=== PATIENT | female | born 1955 | race Caucasian/White ===

== ENCOUNTER 2017-03-01 21:32 | Emergency (ER) | payer OTHER ==
[~2017-03-01 21:32] MED LIST: ACET500CAP PO; ACETSUP325 PR; ASAB PO; BEN25 PO; CLORAZ DIPOT OR; COZ50 PO; DIOVAN HCT160 MG/25 PO; LIDODERM TOP; MULTIVIT/MIN PO; NASACORTAQ NAS; P10; STERAPRED DS10 MG; TRIAMCINOLONE C80 GM TOP; VITAMIN B-12 PO; ZOL100 PO
[2017-03-01 22:34] LABS: BASOPHILS 0.5 %; BASOPHILS ABSOLUTE 0.02 10/3/uL (0.0-0.16); EOSINOPHILS 2.6 %; ER CBC TAT 0 Hrs 07 Mins; HEMATOCRIT 41.2 % (36.0-48.0); HEMOGLOBIN 13.9 g/dL (12.0-16.0); IMMATURE GRANULOCYTES 0.3 %; IMMATURE GRANULOCYTES ABSOLUTE 0.01 10/3/uL (0.0-0.11); LYMPHOCYTES 41.6 %; LYMPHOCYTES ABSOLUTE 1.62 10/3/uL (0.67-4.30); MANUAL DIFF NO %; MEAN CORPUS HGB CONC 33.7 g/dL (32.0-36.0); MEAN CORPUSCULAR HEMOGLOB 32.2 pg (26.0-34.0); MEAN CORPUSCULAR VOLUME 95.4 fL (80-100); MONOCYTES 12.6 %; MONOCYTES ABSOLUTE 0.49 10/3/uL (0.21-1.20); NEUTROPHILS 42.4 %; NEUTROPHILS ABSOLUTE 1.65 10/3/uL (2.02-8.40); PLATELET COUNT 211 10/3/uL (150-400); RED CELL COUNT 4.32 10/6/uL (4.0-5.6); WHITE BLOOD CELLS 3.9 10/3/uL (4.5-10.5)
[2017-03-01 22:40] LABS: PARTIAL THROMBO TIME 26.6 SEC (22.5-37.2)
[2017-03-01 22:50] LABS: BUN (BLOOD UREA NITROGEN) 12 MG/DL (6-23); CALCIUM, SERUM 8.9 MG/DL (8.5-10.4); CHEST PAIN PROFILE TAT 0 Hrs 23 Mins; CHLORIDE, SERUM 106 MMOL/L (96-112); CREATININE 0.93 MG/DL (0.55-1.02); GFR AFRICAN AMERICAN 76 ML/MIN (>=60); GFR NON AFRICAN AMERICAN 65 ML/MIN (>=60); GLUCOSE, SERUM 109 MG/DL (60-99); SODIUM, SERUM 142 MMOL/L (135-148); TROPONIN I <0.02 NG/ML (<0.05)
[2017-03-01 22:51] LABS: CO2 (CARBON DIOXIDE) 34 MMOL/L (24-34)
== END 2017-03-02 01:25 | disposition left against medical advice (07) ==
LOC: ER 21:32
PROVIDERS: Emergency Medicine
DX: R20.0 Anesthesia of skin (principal); M79.601 Pain in right arm; Z53.21 Procedure and treatment not carried out due to patient leaving prior to being seen by health care provider; Z88.0 Allergy status to penicillin; Z88.5 Allergy status to narcotic agent; Z88.8 Allergy status to other drugs, medicaments and biological substances; Z79.82 Long term (current) use of aspirin; Z79.899 Other long term (current) drug therapy
CPT/HCPCS: 70450; 71020; 80048; 83735; 84484; 85025; 85610; 85730; 93005